=== PATIENT | male | born 1950 | race Caucasian/White ===

== ENCOUNTER → 2018-01-11 | Outpatient (CLI) | payer MEDICARE ==
--- NOTE | 2018-01-11 12:54 | PCVCIMAG ---
APPROVED REPORT Study performed: 01/11/2018 11:14:02 EXAM: Comprehensive 2D, Doppler, and color-flow Echocardiogram Patient Location: Echo lab Status: routine BSA: 2.54 2D Dimensions IVSd: 13.64 (7-11mm)LVOT Diam: 25.00 (18-24mm) LVDd: 54.41 mm PWd: 13.64 (7-11mm)Ascending Ao: 38.61 (22-36mm) LVDs: 39.54 (25-40mm) Left Atrium: 43.83 (27-40mm) Aortic Root: 35.11 mm LV Single Plane 4CH: 49.66 % LV Single Plane 2CH: 53.94 % Biplane EF: 52.2 % Volumes Left Atrial Volume (Systole) Single Plane 4CH: 91.61 mLSingle Plane 2CH: 126.58 mL LA ESV Index: 49.00 mL/m2 Aortic Valve AoV Peak Donato.: 2.97 m/s AO Peak Gr.: 35.20 mmHgLVOT Max P.21 mmHg AO Mean Gr.: 15.43 mmHgLVOT Mean P.03 mmHg AO V2 Mean: 1.80 m/sLVOT Max V: 1.03 m/s AO V2 VTI: 58.12 cm DEVENDRA (VTI): 2.30 [id number] V1 VTI: 23.16 cm DEVENDRA Vmax: 1.99 cm2 Mitral Valve E/A Ratio: 1.5 MV Decel. Time: 255.43 ms MV E Max Donato.: 0.89 m/s MV A Donato.: 0.59 m/s MV PHT: 74.08 ms IVRT: 103.81 ms Pulmonary Valve PV Peak Donato.: 1.05 m/sPV Peak Gr.: 4.45 mmHg Pulmonary Vein P Vein S: 0.56 m/sP Vein A: 0.38 m/s P Vein D: 0.71 m/sP Vein A Dur.: 138.4 msec P Vein S/D Ratio: 0.79 Tricuspid Valve TR Peak Donato.: 2.66 m/s TR Peak Gr.: 28.21 mmHg Left Ventricle The left ventricle is normal size. There is normal LV segmental wall motion. Mild concentric left ventricular hypertrophy. The left ventricular systolic function is normal. The left ventricular ejection fraction is within the normal range. LVEF is 50-55%. Grade I - abnormal relaxation pattern. Right Ventricle Right ventricle is mildly dilated. The right ventricular systolic function is normal. Atria Left atrium is moderately dilated. Right atrium is moderately dilated. Aortic Valve Normally functioning mechanical aortic valve replacement. Mild aortic regurgitation. There is no evidence of aortic valve stenosis. Calculated aortic valve area is 2 cm2 with maximum pressure gradient of 35 mmHg and mean pressure gradient of 15 mmHg. Mitral Valve The mitral valve is normal in structure. Mild mitral regurgitation. No evidence of mitral valve stenosis. Tricuspid Valve The tricuspid valve is normal in structure. Mild tricuspid regurgitation with PAP of 35 mmHg. Pulmonic Valve The pulmonary valve is normal in structure. Mild to moderate pulmonic regurgitation. Great Vessels The aortic root is normal in size. IVC is normal in size and collapses >50% with inspiration. Pericardium There is no pericardial effusion. There is no pleural effusion. <Conclusion> The left ventricle is normal size. Mild concentric left ventricular hypertrophy. The left ventricular systolic function is normal. Grade I - abnormal relaxation pattern. Left atrium is moderately dilated. Right atrium is moderately dilated. Normally functioning mechanical aortic valve replacement. Mild aortic regurgitation. Mild mitral regurgitation. Mild tricuspid regurgitation with PAP of 35 mmHg.
== END | disposition home or self-care (01) ==
LOC: PCVCIMAG 09:55
PROVIDERS: ATTEND Internal Medicine Cardiovascular Disease
DX: I08.3 Combined rheumatic disorders of mitral, aortic and tricuspid valves (principal); I82.409 Acute embolism and thrombosis of unspecified deep veins of unspecified lower extremity; I08.0 Rheumatic disorders of both mitral and aortic valves; I10 Essential (primary) hypertension; I15.9 Secondary hypertension, unspecified; E78.5 Hyperlipidemia, unspecified; R60.0 Localized edema; E78.00 Pure hypercholesterolemia, unspecified; Z95.2 Presence of prosthetic heart valve; Z79.01 Long term (current) use of anticoagulants; Z87.891 Personal history of nicotine dependence
CPT/HCPCS: 93005; 93306; G0463

== ENCOUNTER → 2018-06-08 | Outpatient (CLI) | payer MEDICARE | END | disposition home or self-care (01) | LOC: PCVCCLINIC 10:20 | PROVIDERS: ATTEND Internal Medicine Cardiovascular Disease | DX: Z51.81 Encounter for therapeutic drug level monitoring (principal); E78.00 Pure hypercholesterolemia, unspecified; E78.2 Mixed hyperlipidemia; I10 Essential (primary) hypertension; Z79.01 Long term (current) use of anticoagulants; Z88.8 Allergy status to other drugs, medicaments and biological substances; Z95.2 Presence of prosthetic heart valve | CPT/HCPCS: 36415; 85610 ==

== ENCOUNTER → 2018-07-06 | Outpatient (CLI) | payer MEDICARE | END | disposition home or self-care (01) | LOC: PCVCCLINIC 10:20 | PROVIDERS: ATTEND Internal Medicine Cardiovascular Disease | DX: Z51.81 Encounter for therapeutic drug level monitoring (principal); E78.00 Pure hypercholesterolemia, unspecified; E78.2 Mixed hyperlipidemia; I10 Essential (primary) hypertension; Z95.2 Presence of prosthetic heart valve; Z88.8 Allergy status to other drugs, medicaments and biological substances; Z79.01 Long term (current) use of anticoagulants | CPT/HCPCS: 36415; 85610 ==

== ENCOUNTER → 2018-07-19 | Outpatient (CLI) | payer MEDICARE ==
--- NOTE | 2018-07-19 10:51 | PCVCIMAG ---
APPROVED REPORT Study performed: 07/19/2018 09:31:12 Exam: Stress Echocardiogram Indication: htn, hlp, PACs, AV replacement Stress Nurse: Swetha Guzmán RN Status: routine Ht: 6 ft 4 in HR: 65 bpm BP: 118/76 mmHg Rhythm: NSR w/ PACs Procedure The patient underwent an Exercise Stress Test using the Anant Protocol. Blood pressure, heart rate, and EKG were monitored. An Echocardiogram was performed by cartography/mapping technician in four stages in quad fashion. At peak stress, four selected images were obtained and placed side by side with resting images for comparison. Stress Test Details Stress Test: Exercise stress testing was performed using a Anant protocol. HR Resting HR: 65 bpmMax Heart Rate (APMHR): 152 bpm Max HR Achieved: 155 bpmTarget HR (85% APMHR): 129 bpm % of APMHR: 101 Recovery HR: 80 bpm HR response to stress: Normal HR response to stress BP Resting BP: 118/76 mmHg Max BP: 156/74 mmHg Recovery BP: 140/70 mmHg BP response to stress: Normal blood pressure response to stress. ECG Resting ECG: Sinus Rhythm w/ PACS w/ nonspecific ST abnormality Stress ECG: Sinus Rhythm ST Change: Non-ischemic Arrhythmia: PVCs, PACs Recovery ECG: Sinus Rhythm Recovery Arrhythmia: PACs, PVCs Clinical Reason for Termination: Maximal effort Stress Symptoms: Dyspnea, knee pain Exercise duration: 6 min 26 sec Highest Stage Achieved: Stage 3: 3.4 mph at 14% grade. Exercise capacity: 8.2 METs Overall Exercise Capacity for Age: Normal Scale: Active Angina Score: None Pre-Stress Echo The resting Echocardiogram showed normal left ventricular contractility with an estimated Ejection Fraction of about 55%. Normal wall motion in all segments on baseline images. Post-Stress Echo The stress Echocardiogram showed normal left ventricular contractility with an estimated Ejection Fraction of about 60-65%. Normal augmentation of wall motion in all segments on post stress images. Clinical No clinical or ECG evidence for ischemia. Conclusion Clinical Response: Non-ischemic Exercise Capacity: Average Stress ECG Response: Non-ischemic Stress Echo Images: Non-ischemic The left ventricle is normal in size and wall thickness in both the rest and stress images. Other Information Study Quality: Adequate <Conclusion> The left ventricle is normal in size and wall thickness in both the rest and stress images.
== END | disposition home or self-care (01) ==
LOC: PCVCIMAG 09:45
PROVIDERS: ATTEND Internal Medicine Cardiovascular Disease
DX: I10 Essential (primary) hypertension (principal); E78.5 Hyperlipidemia, unspecified; I35.0 Nonrheumatic aortic (valve) stenosis; E78.00 Pure hypercholesterolemia, unspecified; R60.9 Edema, unspecified; Z79.82 Long term (current) use of aspirin; Z87.891 Personal history of nicotine dependence
CPT/HCPCS: 93325; 93351; G0463

== ENCOUNTER → 2018-10-26 | Outpatient (CLI) | payer MEDICARE | END | disposition home or self-care (01) | LOC: PCVCCLINIC 13:21 | PROVIDERS: ATTEND Internal Medicine Cardiovascular Disease | DX: Z51.81 Encounter for therapeutic drug level monitoring (principal); E78.00 Pure hypercholesterolemia, unspecified; I10 Essential (primary) hypertension; E78.2 Mixed hyperlipidemia; Z79.01 Long term (current) use of anticoagulants | CPT/HCPCS: 36415; 85610 ==

== ENCOUNTER → 2018-11-16 | Outpatient (CLI) | payer MEDICARE | END | disposition home or self-care (01) | LOC: PCVCCLINIC 14:29 | PROVIDERS: ATTEND Internal Medicine Cardiovascular Disease | DX: Z51.81 Encounter for therapeutic drug level monitoring (principal); E78.00 Pure hypercholesterolemia, unspecified; E78.2 Mixed hyperlipidemia; I10 Essential (primary) hypertension; Z88.8 Allergy status to other drugs, medicaments and biological substances; Z95.2 Presence of prosthetic heart valve; Z79.01 Long term (current) use of anticoagulants | CPT/HCPCS: 36415; 85610 ==

== ENCOUNTER → 2018-12-14 | Outpatient (CLI) | payer MEDICARE | END | disposition home or self-care (01) | LOC: PCVCCLINIC 11:30 | PROVIDERS: ATTEND Internal Medicine Cardiovascular Disease | DX: Z51.81 Encounter for therapeutic drug level monitoring (principal); I10 Essential (primary) hypertension; E78.00 Pure hypercholesterolemia, unspecified; E78.2 Mixed hyperlipidemia; Z95.2 Presence of prosthetic heart valve; Z79.01 Long term (current) use of anticoagulants; Z87.891 Personal history of nicotine dependence; Z88.8 Allergy status to other drugs, medicaments and biological substances | CPT/HCPCS: 36415; 85610 ==

== ENCOUNTER → 2019-01-24 | Outpatient (CLI) | payer MEDICARE | END | disposition home or self-care (01) | LOC: PCVCCLINIC 11:20 | PROVIDERS: ATTEND Internal Medicine Cardiovascular Disease | DX: Z51.81 Encounter for therapeutic drug level monitoring (principal); E78.00 Pure hypercholesterolemia, unspecified; I10 Essential (primary) hypertension; E78.2 Mixed hyperlipidemia; Z95.0 Presence of cardiac pacemaker; Z87.891 Personal history of nicotine dependence; Z88.8 Allergy status to other drugs, medicaments and biological substances | CPT/HCPCS: 36415; 85610 ==